=== PATIENT | female | born 1960 | race Caucasian/White ===

== ENCOUNTER → 2020-05-24 | Outpatient (CLI) | payer MEDICARE, OTHER | END | disposition home or self-care (01) | LOC: RADMRIMAIN 10:02 | DX: Z53.9 Procedure and treatment not carried out, unspecified reason (principal) ==

== ENCOUNTER → 2020-07-16 | Outpatient (CLI) | payer MEDICARE, OTHER ==
[2020-07-16 17:09] VITALS: BP 120/90; PULSE 101; RESP 18; TEMP 97.9; BMI 47.9
--- NOTE | 2020-07-16 17:47 | P.HPBAR ---
Bariatric H&P - History & Physicial H&P Date: 07/16/20 History & Physicial: Visit/CC: initial visit Patient initial contact: Initial weight: Initial weight in pounds: Height: 5 ft 5.5 in Initial BMI: Last weight: Current weight: 132.903 kg Current weight in pounds: 293.00 Current BMI: 47.9 [place] body weight (based on NIH guidelines): 57.833 kg Excess body weight loss: The patient is a 60 year-old F who presents for Bariatric Assessment. DATE OF SERVICE: 07/16/2020 REASON FOR CONSULTATION: Initial bariatric evaluation. HISTORY OF PRESENT ILLNESS: Elle Brown is a 60-year-old female who comes with lifelong morbid obesity. She comes in looking into the gastric bypass. Her highest weight is 303 pounds. She has lost 10 pounds in 1.5 months. She has tried diet pills, starvation all without weight loss. She reports high blood pressure and acid reflux. She takes Omeprazole with minimal improvement of her symptoms for 3 years. She does not have her gallbladder. She had an upper scope 2 years ago and diagnosed with Briscoe's esophagus. Her has passed. She reports depression. She does not recollect having a hiatal hernia. She has colon polyps and is due for colonoscopy. No reports of colon cancer in her family. No esophageal cancer in her family history. As a result of her morbid obesity, she reports lower back pain and knee pain. She has occasional foot pain. She presents to me first time in consultation for management of her morbid obesity. At height of 5 feet 5.5 inches, her ideal body weight is 149 pounds. Her highest weight is 303 pounds with body mass index 49.8. She comes in 292 pounds. Her body mass index is 48.0. She is 143 pounds overweight. PAST MEDICAL HISTORY: 1. Morbid obesity due to excess calories 2. Body mass index of 48.0, initial 3. Generalized anxiety disorder 4. Hyperlipidemia 5. Depressive disorder 6. Migraines 7. Hypertensive heart disease 8. Gastroesophageal reflux disease. 9. Osteoarthritis lower back 10. Neuropathy 11. Briscoe's esophagus 12. Colon polyps 13. Osteoarthritis knees PAST SURGICAL HISTORY: 1. Bladder lift 2. section 3. Hysterectomy 4. Cholecystectomy 5. Left breast biopsy 6. Colonoscopy HOME MEDICATIONS: Home Medications Medication Instructions Recorded Confirmed ALPRAZolam [Xanax] 0.5 mg PO DAILY PRN 12/16/16 09/04/20 Omeprazole [PriLOSEC] 40 mg PO AC-BID 12/16/16 09/04/20 Amoxicillin 500 mg PO Q8H 09/04/20 09/04/20 Atorvastatin Calcium [Lipitor] 20 mg PO HS 09/04/20 09/04/20 DULoxetine HCL [Cymbalta] 30 mg PO BID 09/04/20 09/04/20 Multivitamins, Thera [Multivitamin 1 tab PO DAILY 09/04/20 09/04/20 (formulary)] SUMAtriptan succinate [Imitrex] 50 mg PO ONCE PRN 09/04/20 09/04/20 calcium polycarbophiL [Fibercon] 500 mg PO DAILY 09/04/20 09/04/20 hydroCHLOROthiazide 25 mg PO DAILY 09/04/20 09/04/20 ALLERGIES: Allergies Allergy/AdvReac Type Severity Reaction Status Date / Time No Known Allergies Allergy Verified 09/04/20 09:34 SOCIAL HISTORY: Tobacco use. FAMILY HISTORY: No family history of ulcerative colitis disease or Crohn's disease. Family history of morbid obesity. No lupus in the family. No reports of stomach or esophageal cancer. REVIEW OF ORGAN SYSTEMS: CONSTITUTIONAL: HEENT: Denies any active troubles with vision or hearing. Has troubles with swallowing. ENDOCRINE: Denies diabetes. No hypothyroidism. CARDIOVASCULAR: Denies reports of palpitations or heart attacks or chest pain. Has hypertensive heart disease. RESPIRATORY: Has chronic obstructive pulmonary disease. GASTROINTESTINAL: Denies any bright red blood per rectum. No diarrhea. No constipation. Has gastroesophageal reflux disease. GENITOURINARY: Has bladder urgency. No recent blood in urine MUSCULOSKELETAL: Has lower back pain and joint pain. Has osteoarthritis of the knees. NEURO: No headaches. No seizure disorders. Has neuropathy. PSYCH: Has depression. No suicidal ideation. Has anxiety RHEUMATOLOGIC: No lupus. No rheumatoid arthritis. HEMATOLOGIC: Denies any abnormal bleeding or bruising. SKIN: No rash. No skin cancer. PHYSICAL EXAM: VITAL SIGNS: Height 5 foot 5.5 inches, weight 292 pounds. BMI 48.0 Vital Signs Temp 97.9 F 07/16/20 17:04 Pulse 101 H 07/16/20 17:04 Resp 18 07/16/20 17:04 BP 120/90 07/16/20 17:04 Pulse Ox GENERAL: Well-developed in no acute distress. HEENT: No scleral icterus. Extraocular movements grossly intact. Hears conversational speech. No nasal drainage. NECK: Supple without lymphadenopathy. CHEST: Nonlabored respirations with equal bilateral excursions. CARDIOVASCULAR: Tachycardic. ABDOMEN: Obese, soft, nontender, nondistended. MUSCULOSKELETAL: No clubbing, cyanosis. NEURO: No focal or lateralizing signs. Cranial nerves 2 through 12 grossly within normal limits. PSYCH: Appropriate affect. Alert and oriented to person, place and time. SKIN: Good skin turgor. Well perfused. ASSESSMENT: 1. Morbid obesity due to excess calories 2. Body mass index of 49.8, initial 3. Generalized anxiety disorder 4. Hyperlipidemia 5. Depressive disorder 6. Migraines 7. Hypertensive heart disease 8. Gastroesophageal reflux disease. 9. Osteoarthritis lower back 10. Neuropathy 11. Briscoe's esophagus 12. Colon polyps 13. Osteoarthritis knees 14. Tachycardia PLAN: 1. Surgical options including a band, gastric bypass, sleeve gastrectomy were described in detail. Alternatives such as gastric balloon including duodenal switch were described. She is looking into the gastric bypass. 2. The [place] bariat[facility] surgical collaborative data and outcomes calculator were described with surgical options. 3. Recommend a bariatric metabolic panel to evaluate for micro- including macronutrient deficiencies. 4. For history of daytime somnolence, recommend evaluation and treatment for sleep apnea. 5. Dietary surveillance and counseling was reviewed. Increased protein intake over 65 grams daily advised. 6. Will need cardiac risk assessment. 7. Recommend medical risk assessment. 8. Psych assessment per insurance guidelines. 9. Recommend upper endoscopy. 10. Recommend 12-lead EKG. 11. Recommend esophagram 12. Recommend urine nicotine testing for history of tobacco abuse disorder 13. Recommend urine drug screen 14. Recommend colonoscopy for colon polyps and colon cancer screening. 15. Overall, she is elevated risk for procedures due to uncontrolled tachycardia. Thank you for this consultation. Past Medical History Past Medical History: GERD/Reflux Additional Past Medical History / Comment(s): PROLASPED BLADDER, BACK PAIN, tingling in hands. History of Any Multi-Drug Resistant Organisms: None Reported Past Surgical History: Bladder Surgery, Breast Surgery, Section, Cholecystectomy, Hysterectomy Additional Past Surgical History / Comment(s): [id number]. LT BREAST BX- BENIGN. COLONOSCOPY. blader repair Past Anesthesia/Blood Transfusion Reactions: Motion Sickness Past Psychological History: Anxiety, Depression Smoking Status: Former smoker Past Alcohol Use History: None Reported Additional Past Alcohol Use History / Comment(s): DOWN TO 2 CIGARETTES DAILY-HAS SMOKED OFF AND ON SINCE AGE 19. ON CHANTIX-TRYING TO QUIT. Past Drug Use History: None Reported - Past Family History Brother(s) Family Medical History: Cancer Surgical - Exam Vital Signs Temp Pulse Resp BP 97.9 F 101 H 18 120/90 07/16/20 17:04 07/16/20 17:04 07/16/20 17:04 07/16/20 17:04 Bariatric Checklist Checklist: Plan: Checklist: EGD: 1. Hiatal hernia: 2. H. Pylori: HgbA1c: Vitamin D: Smoking: Light tobacco smoker Primary care physician referral: Dr. Rome ([facility]) Psychiatry clearance: Cardiology clearance: Sleep study: Diet journal: VTE risk score: VTE risk level: Rehab needs at discharge:
== END ==
LOC: BARWHC3 15:58
PROVIDERS: ATTEND Surgery Plastic and Reconstructive Surgery
DX: E66.01 Morbid (severe) obesity due to excess calories (principal); F41.1 Generalized anxiety disorder; F32.9 Major depressive disorder, single episode, unspecified; G43.909 Migraine, unspecified, not intractable, without status migrainosus; I11.9 Hypertensive heart disease without heart failure; K21.9 Gastro-esophageal reflux disease without esophagitis; M47.9 Spondylosis, unspecified; G62.9 Polyneuropathy, unspecified; F17.200 Nicotine dependence, unspecified, uncomplicated; K22.70 Barrett's esophagus without dysplasia; R00.0 Tachycardia, unspecified; K63.5 Polyp of colon; M17.0 Bilateral primary osteoarthritis of knee; E78.5 Hyperlipidemia, unspecified; Z68.42 Body mass index [BMI] 45.0-49.9, adult
CPT/HCPCS: 99203